=== PATIENT | female | born 1990 | race Caucasian/White ===

== ENCOUNTER 2018-01-05 21:00 | Emergency (ER) | payer OTHER ==
[~2018-01-05] VITALS: Ht 157.5 cm; Wt 88.9 kg
[2018-01-05 21:17] VITALS: Ht 157.5 cm; Wt 88.9 kg
[2018-01-05 23:10] VITALS: BP 105/57
== END 2018-01-05 23:00 | disposition home or self-care (01) ==
LOC: EDBD 21:00 → ED 21:00
DX: G43.909 Migraine, unspecified, not intractable, without status migrainosus (principal); K64.9 Unspecified hemorrhoids
CPT/HCPCS: J0780; J1885